=== PATIENT | female | born 1955 | race Caucasian/White ===

== ENCOUNTER 2016-10-28 09:27 | Emergency (ER) | payer MEDICARE, MEDICAID ==
[~2016-10-28] VITALS: Ht 165.1 cm; Wt 56.8 kg
[~2016-10-28 09:27] MED LIST: CELEXA40 MG PO; CYMBALTA 60MG60 MG PO; IMITREX100 MG PO; KEPPRA 500MG500 MG PO; KEPPRA750 MG PO; KLONOPIN 1MG1 MG PO; LEVAQUIN 750MG750 M1 PO; MEDROL 4MG DOSPA4 MG PO; NORCO 325 MG-51 TAB PO; PERCOCET 325 MG1 TA2 PO; PERCOCET 5/321 UDTAB PO; PRILOSEC 20MG20 MG PO; PRILOSEC2.5 MG/Pac PO; PROTONIX 40MG T40 MG PO; RESTORIL30 MG PO; SEIZURE MED; SYNTHROID0.088 MG/T PO; SYNTHROID0.1 MG/TAB PO; TOPAMAX50 MG PO; ZOFRAN ODT4 MG PO
[2016-10-28 09:37] VITALS: BP 151/102; TEMP 97.5
[2016-10-28 11:44] VITALS: PULSE 97
== END 2016-10-28 11:44 | disposition home or self-care (01) ==
LOC: COL.ER 09:27
DX: G43.909 Migraine, unspecified, not intractable, without status migrainosus (principal)
CPT/HCPCS: J0595; J1885; J2550

== ENCOUNTER → 2016-10-30 | Outpatient (CLI) | payer MEDICARE, MEDICAID ==
[~2016-10-30] MED LIST changes: +ABILIFY2 MG PO; +BACTRIM DS 8001 TAB PO; +CAPACET 325 MG-1 CAP PO; +CEPHALEXIN500 M1 PO; +DOXYCYCLINE 10100 MG PO; +LEVOXYL0.1 MG PO; +LOFIBRA54 MG PO; +NORCO 325 MG-7.1 TAB PO; +ROXICODONE 55 MG/TAB PO; +TENORMIN 2525 MG/TAB PO
[2016-10-30 15:42] LABS: BASO # 0.1 (0.0-0.2); BASO % 1.1 % (0.0-2.0); EOS # 0.2 (0.0-0.7); EOS % 2.1 % (0-4.0); GRAN # 5.6 (1.4-6.5); GRAN % 61.1 % (42.2-75.2); HEMATOCRIT 39.2 % (37.0-47.0); HEMOGLOBIN 12.8 g/dl (12.5-16.0); LYMPH # 2.6 (1.2-3.4); LYMPH % 28.5 % (20.0-51.0); MEAN CELL VOLUME 91 fl (80.0-100.0); MEAN CORPUSCULAR HEMOGLOBIN 30 pg (27.0-31.0); MEAN CORPUSCULAR HGB CONC 33 g/dl (33.0-37.0); MEAN PLATELET VOLUME 10.2 fl (7.4-10.4); MONO # 0.6 (0.1-0.6); MONO % 6.4 % (1.7-9.3); PLATELET COUNT 248 K/mm3 (130-400); RED BLOOD COUNT 4.32 M/mm3 (4.10-5.30); REDCELL DISTRIBUTION WIDTH-CV 16.8 % (11.5-14.5); WHITE BLOOD COUNT 9.1 K/mm3 (4.8-10.8)
[2016-10-30 15:50] LABS: ALBUMIN 4.4 gm/dL (3.5-5.0); BILIRUBIN,TOTAL 0.6 mg/dL (0.0-1.0); CALCIUM 9.3 mg/dL (8.4-10.2); CREATININE, serum 0.92 mg/dL (0.52-1.25); POTASSIUM 3.9 mmol/L (3.4-5.0); TOTAL PROTEIN 8.2 gm/dL (6.4-8.2)
== END ==
LOC: COL.LAB 14:29
PROVIDERS: Nurse Practitioner Family
DX: E03.8 Other specified hypothyroidism (principal); K21.9 Gastro-esophageal reflux disease without esophagitis; M81.8 Other osteoporosis without current pathological fracture

== ENCOUNTER 2016-11-10 04:43 | Emergency (ER) | payer MEDICARE, MEDICAID ==
[~2016-11-10] VITALS: Ht 165.1 cm; Wt 55.9 kg
[~2016-11-10 04:43] MED LIST changes: -ABILIFY2 MG PO; -BACTRIM DS 8001 TAB PO; -CAPACET 325 MG-1 CAP PO; -CEPHALEXIN500 M1 PO; -DOXYCYCLINE 10100 MG PO; -LEVOXYL0.1 MG PO; -LOFIBRA54 MG PO; -NORCO 325 MG-7.1 TAB PO; -ROXICODONE 55 MG/TAB PO; -TENORMIN 2525 MG/TAB PO
[2016-11-10 04:45] VITALS: TEMP 97.1
[2016-11-10 06:55] VITALS: BP 130/92; PULSE 74
== END 2016-11-10 06:56 | disposition home or self-care (01) ==
LOC: COL.ER 04:43
DX: G43.909 Migraine, unspecified, not intractable, without status migrainosus (principal)
CPT/HCPCS: J0595; J1885; J2765; J7030

== ENCOUNTER 2016-12-23 20:12 | Emergency (ER) | payer MEDICARE, MEDICAID ==
[~2016-12-23] VITALS: Ht 165.1 cm; Wt 65.9 kg
[2016-12-23 20:15] VITALS: TEMP 98.3
[2016-12-23] MEDS ORDERED: CEPHALEXIN500 M1 PO (21:21)
[2016-12-23] MEDS ORDERED: NORCO 325 MG-51 TAB PO (21:21)
[2016-12-23] MEDS ORDERED: ROXICODONE 55 MG/TAB PO (21:38)
[2016-12-23 22:28] VITALS: BP 139/98; PULSE 77
== END 2016-12-23 22:32 | disposition home or self-care (01) ==
LOC: COL.ER 20:12
DX: M79.631 Pain in right forearm (principal); M79.621 Pain in right upper arm; S80.02XA Contusion of left knee, initial encounter; S50.311A Abrasion of right elbow, initial encounter; G43.909 Migraine, unspecified, not intractable, without status migrainosus; F17.210 Nicotine dependence, cigarettes, uncomplicated; W01.198A Fall on same level from slipping, tripping and stumbling with subsequent striking against other object, initial encounter; Y92.009 Unspecified place in unspecified non-institutional (private) residence as the place of occurrence of the external cause

== ENCOUNTER 2017-01-21 18:15 | Emergency (ER) | payer OTHER, MEDICARE, MEDICAID ==
[~2017-01-21] VITALS: Ht 165.1 cm; Wt 56.8 kg
[~2017-01-21 18:15] MED LIST changes: +CEPHALEXIN500 M1 PO; +ROXICODONE 55 MG/TAB PO
[2017-01-21] MEDS ORDERED: ABILIFY2 MG PO (18:32)
[2017-01-21 19:17] LABS: BASO # 0.1 (0.0-0.2); BASO % 0.6 % (0.0-2.0); EOS # 0.3 (0.0-0.7); EOS % 2.5 % (0-4.0); GRAN # 9.4 (1.4-6.5); GRAN % 71.2 % (42.2-75.2); HEMATOCRIT 32.1 % (37.0-47.0); HEMOGLOBIN 10.4 g/dl (12.5-16.0); LYMPH # 2.1 (1.2-3.4); LYMPH % 16.1 % (20.0-51.0); MEAN CELL VOLUME 88 fl (80.0-100.0); MEAN CORPUSCULAR HEMOGLOBIN 28 pg (27.0-31.0); MEAN CORPUSCULAR HGB CONC 32 g/dl (33.0-37.0); MEAN PLATELET VOLUME 10.7 fl (7.4-10.4); MONO # 1.2 (0.1-0.6); MONO % 9.2 % (1.7-9.3); PLATELET COUNT 210 K/mm3 (130-400); RED BLOOD COUNT 3.65 M/mm3 (4.10-5.30); REDCELL DISTRIBUTION WIDTH-CV 18.9 % (11.5-14.5); WHITE BLOOD COUNT 13.2 K/mm3 (4.8-10.8)
[2017-01-21 19:24] LABS: ADJUSTED CALCIUM 9.1 mg/dL (8.4-10.2); ALANINE AMINOTRANSFERASE 16 U/L (9-52); ALBUMIN 3.9 gm/dL (3.5-5.0); ALKALINE PHOSPHATASE 92 U/L (50-136); ANION GAP 14 mmol/L (7-16); BILIRUBIN,TOTAL 0.5 mg/dL (0.0-1.0); BLOOD UREA NITROGEN 10 mg/dL (7-17); CARBON DIOXIDE 20 mmol/L (22-30); CHLORIDE 106 mmol/L (98-107); CREATININE, serum 0.78 mg/dL (0.52-1.25); GLUCOSE 113 mg/dL (74-106); POTASSIUM 3.6 mmol/L (3.4-5.0); SODIUM 140 mmol/L (137-145); TOTAL PROTEIN 7.2 gm/dL (6.4-8.2)
[2017-01-21 19:26] LABS: C-REACTIVE PROTEIN < 0.5 mg/dL (0.0-0.9)
[2017-01-21 19:38] VITALS: TEMP 98.6
[2017-01-21] MEDS ORDERED: PERCOCET 325 MG1 TA2 PO (20:33)
[2017-01-21] MEDS ORDERED: DOXYCYCLINE 10100 MG PO (20:33)
[2017-01-21 20:45] VITALS: BP 128/72; PULSE 88
== END 2017-01-21 20:54 | disposition home or self-care (01) ==
LOC: COL.ER 18:15
PROVIDERS: Emergency Medicine
DX: S20.212A Contusion of left front wall of thorax, initial encounter (principal); J40 Bronchitis, not specified as acute or chronic; G43.909 Migraine, unspecified, not intractable, without status migrainosus; R55 Syncope and collapse; E03.9 Hypothyroidism, unspecified; K21.9 Gastro-esophageal reflux disease without esophagitis; M19.90 Unspecified osteoarthritis, unspecified site; M81.0 Age-related osteoporosis without current pathological fracture; F17.210 Nicotine dependence, cigarettes, uncomplicated; Z90.710 Acquired absence of both cervix and uterus; Z90.49 Acquired absence of other specified parts of digestive tract; Z90.89 Acquired absence of other organs; Z96.641 Presence of right artificial hip joint; W19.XXXA Unspecified fall, initial encounter
CPT/HCPCS: A9284; J0595; J1885; J2765; J3010; J7030

== ENCOUNTER 2017-01-26 06:09 | Emergency (ER) | payer MEDICARE, MEDICAID ==
[~2017-01-26] VITALS: Ht 165.1 cm; Wt 56.8 kg
[~2017-01-26 06:09] MED LIST changes: +ABILIFY2 MG PO; +DOXYCYCLINE 10100 MG PO
[2017-01-26 06:12] VITALS: TEMP 97.4
[2017-01-26] MEDS ORDERED: PRILOSEC 20MG20 MG PO (06:32)
[2017-01-26] MEDS ORDERED: CELEXA40 MG PO (06:33)
[2017-01-26] MEDS ORDERED: LEVOXYL0.1 MG PO (06:35)
[2017-01-26 06:48] LABS: BASO # 0.1 (0.0-0.2); BASO % 0.9 % (0.0-2.0); EOS # 0.2 (0.0-0.7); EOS % 1.8 % (0-4.0); GRAN # 5.8 (1.4-6.5); GRAN % 67.9 % (42.2-75.2); LYMPH # 1.8 (1.2-3.4); LYMPH % 21.2 % (20.0-51.0); MEAN CELL VOLUME 88 fl (80.0-100.0); MEAN CORPUSCULAR HGB CONC 32 g/dl (33.0-37.0); MEAN PLATELET VOLUME 10.2 fl (7.4-10.4); MONO # 0.7 (0.1-0.6); MONO % 7.7 % (1.7-9.3); PLATELET COUNT 269 K/mm3 (130-400); RED BLOOD COUNT 3.95 M/mm3 (4.10-5.30); REDCELL DISTRIBUTION WIDTH-CV 17.9 % (11.5-14.5); WHITE BLOOD COUNT 8.5 K/mm3 (4.8-10.8)
[2017-01-26 06:57] LABS: ADJUSTED CALCIUM 9.4 mg/dL (8.4-10.2); ALANINE AMINOTRANSFERASE 16 U/L (9-52); ALKALINE PHOSPHATASE 103 U/L (50-136); ANION GAP 12 mmol/L (7-16); BILIRUBIN,TOTAL 0.6 mg/dL (0.0-1.0); BLOOD UREA NITROGEN 13 mg/dL (7-17); CALCIUM 9.4 mg/dL (8.4-10.2); CARBON DIOXIDE 24 mmol/L (22-30); CHLORIDE 105 mmol/L (98-107); CREATINE KINASE 47 U/L (30-135); CREATININE, serum 0.81 mg/dL (0.52-1.25); GLUCOSE 99 mg/dL (74-106); LIPASE 44 U/L (23-300); POTASSIUM 3.8 mmol/L (3.4-5.0); SODIUM 141 mmol/L (137-145); TOTAL PROTEIN 7.4 gm/dL (6.4-8.2)
[2017-01-26 07:16] LABS: TROPONIN-I < 0.012 ng/mL (0.000-0.034)
[2017-01-26 07:34] LABS: HEMATOCRIT 34.6 % (37.0-47.0); HEMOGLOBIN 11.1 g/dl (12.5-16.0); MEAN CORPUSCULAR HEMOGLOBIN 28 pg (27.0-31.0)
[2017-01-26] MEDS ORDERED: NORCO 325 MG-51 TAB PO (07:57)
[2017-01-26 08:20] VITALS: BP 135/82; PULSE 79
[2017-01-26 09:06] LABS: B-TYPE NATRIURETIC PEPTIDE 304 pg/mL (0-125)
== END 2017-01-26 08:51 | disposition home or self-care (01) ==
LOC: COL.ER 06:09
PROVIDERS: Emergency Medicine
DX: S22.22XA Fracture of body of sternum, initial encounter for closed fracture (principal); W01.198A Fall on same level from slipping, tripping and stumbling with subsequent striking against other object, initial encounter; Y92.009 Unspecified place in unspecified non-institutional (private) residence as the place of occurrence of the external cause; G43.909 Migraine, unspecified, not intractable, without status migrainosus; Z91.81 History of falling; M48.54XA Collapsed vertebra, not elsewhere classified, thoracic region, initial encounter for fracture; E03.9 Hypothyroidism, unspecified
CPT/HCPCS: J1885; J2270; J7030; Q9967

== ENCOUNTER → 2017-02-12 | Outpatient (REF) ==
[~2017-02-12] MED LIST changes: +BACTRIM DS 8001 TAB PO; +CAPACET 325 MG-1 CAP PO; +LEVOXYL0.1 MG PO; +LOFIBRA54 MG PO; +NORCO 325 MG-7.1 TAB PO; +TENORMIN 2525 MG/TAB PO
[2017-02-12 18:53] LABS: THYROID STIMULATING HORMONE < 0.015 uIU/mL (0.465-4.680)
== END ==
LOC: ZLAB.WCH 18:12
PROVIDERS: Family Medicine
DX: Z01.89 Encounter for other specified special examinations (principal)

== ENCOUNTER 2017-02-25 03:27 | Emergency (ER) | payer OTHER, MEDICARE, MEDICAID ==
[~2017-02-25] VITALS: Ht 165.1 cm; Wt 54.5 kg
[~2017-02-25 03:27] MED LIST changes: -BACTRIM DS 8001 TAB PO; -CAPACET 325 MG-1 CAP PO; -LOFIBRA54 MG PO; -NORCO 325 MG-7.1 TAB PO; -TENORMIN 2525 MG/TAB PO
[2017-02-25 03:29] VITALS: TEMP 97.4
[2017-02-25 04:11] LABS: ALBUMIN 3.7 gm/dL (3.5-5.0); BILIRUBIN,TOTAL 0.6 mg/dL (0.0-1.0); CALCIUM 8.8 mg/dL (8.4-10.2); CREATININE, serum 0.68 mg/dL (0.52-1.25); POTASSIUM 4.1 mmol/L (3.4-5.0); TOTAL PROTEIN 7.3 gm/dL (6.4-8.2)
[2017-02-25 04:32] LABS: BASO % 0.5 % (0.0-2.0); EOS # 0.2 (0.0-0.7); EOS % 2.3 % (0-4.0); GRAN # 5.1 (1.4-6.5); GRAN % 59.7 % (42.2-75.2); LYMPH # 2.3 (1.2-3.4); LYMPH % 27.2 % (20.0-51.0); MEAN CELL VOLUME 87 fl (80.0-100.0); MEAN CORPUSCULAR HGB CONC 32 g/dl (33.0-37.0); MONO # 0.9 (0.1-0.6); PLATELET COUNT 191 K/mm3 (130-400); RED BLOOD COUNT 3.44 M/mm3 (4.10-5.30); REDCELL DISTRIBUTION WIDTH-CV 17.4 % (11.5-14.5); WHITE BLOOD COUNT 8.6 K/mm3 (4.8-10.8)
[2017-02-25 04:34] LABS: HEMATOCRIT 29.8 % (37.0-47.0); HEMOGLOBIN 9.4 g/dl (12.5-16.0); MEAN CORPUSCULAR HEMOGLOBIN 27 pg (27.0-31.0)
[2017-02-25 05:09] LABS: PH 5 (5-8); SQUAMOUS EPITHELIAL 0-2 /hpf; URINE APPEARANCE Clear; URINE BACTERIA None Seen /hpf; URINE BILIRUBIN Negative (NEGATIVE); URINE BLOOD Negative (NEGATIVE); URINE COLOR Yellow; URINE GLUCOSE Negative (NEGATIVE); URINE KETONE Negative (NEGATIVE); URINE RBC 0-2 /hpf; URINE UROBILINOGEN Negative (NEGATIVE); URINE WBC 0-2 /hpf
[2017-02-25] MEDS ORDERED: RESTORIL30 MG PO (05:17)
[2017-02-25] MEDS ORDERED: SYNTHROID0.088 MG/T PO (05:17)
[2017-02-25] MEDS ORDERED: CAPACET 325 MG-1 CAP PO (05:18)
[2017-02-25] MEDS ORDERED: KLONOPIN 1MG1 MG PO (05:20)
[2017-02-25] MEDS ORDERED: CYMBALTA 60MG60 MG PO (05:20)
[2017-02-25 07:23] VITALS: BP 107/81; PULSE 83
== END 2017-02-25 07:24 | disposition home or self-care (01) ==
LOC: COL.ER 03:27
PROVIDERS: Emergency Medicine
DX: S62.325A Displaced fracture of shaft of fourth metacarpal bone, left hand, initial encounter for closed fracture (principal); S62.363A Nondisplaced fracture of neck of third metacarpal bone, left hand, initial encounter for closed fracture; S62.391A Other fracture of second metacarpal bone, left hand, initial encounter for closed fracture; W19.XXXA Unspecified fall, initial encounter; Z91.81 History of falling; Y92.007 Garden or yard of unspecified non-institutional (private) residence as the place of occurrence of the external cause; R51 Headache; S22.20XD Unspecified fracture of sternum, subsequent encounter for fracture with routine healing; M48.54XD Collapsed vertebra, not elsewhere classified, thoracic region, subsequent encounter for fracture with routine healing; M40.209 Unspecified kyphosis, site unspecified; R40.0 Somnolence
CPT/HCPCS: J1170; J1885; J7030

== ENCOUNTER → 2017-03-11 | Outpatient (CLI) | payer MEDICARE, MEDICAID ==
[~2017-03-11] MED LIST changes: +BACTRIM DS 8001 TAB PO; +CAPACET 325 MG-1 CAP PO; +LOFIBRA54 MG PO; +NORCO 325 MG-7.1 TAB PO; +TENORMIN 2525 MG/TAB PO
[2017-03-11 12:13] LABS: ADJUSTED CALCIUM 9.7 mg/dL (8.4-10.2); ALANINE AMINOTRANSFERASE 16 U/L (9-52); ALBUMIN 3.8 gm/dL (3.5-5.0); ALKALINE PHOSPHATASE 100 U/L (50-136); ANION GAP 11 mmol/L (7-16); BILIRUBIN,TOTAL 0.4 mg/dL (0.0-1.0); BLOOD UREA NITROGEN 6 mg/dL (7-17); CALCIUM 9.5 mg/dL (8.4-10.2); CARBON DIOXIDE 22 mmol/L (22-30); CHLORIDE 107 mmol/L (98-107); CHOLESTEROL 236 mg/dL (120-200); CREATININE, serum 0.66 mg/dL (0.52-1.25); GLUCOSE 95 mg/dL (74-106); POTASSIUM 4.2 mmol/L (3.4-5.0); SODIUM 140 mmol/L (137-145); TOTAL PROTEIN 7.4 gm/dL (6.4-8.2); TRIGLYCERIDE 488 mg/dL
[2017-03-11 12:24] LABS: HDL CHOLESTEROL 54 mg/dL
== END ==
LOC: COL.LAB 10:31
PROVIDERS: Family Medicine
DX: Z13.6 Encounter for screening for cardiovascular disorders (principal); Z13.1 Encounter for screening for diabetes mellitus

== ENCOUNTER 2017-03-24 05:27 | Emergency (ER) | payer MEDICARE, MEDICAID ==
[~2017-03-24] VITALS: Ht 157.5 cm; Wt 56.8 kg
[~2017-03-24 05:27] MED LIST changes: -BACTRIM DS 8001 TAB PO; -LOFIBRA54 MG PO; -NORCO 325 MG-7.1 TAB PO; -TENORMIN 2525 MG/TAB PO
[2017-03-24 05:30] VITALS: TEMP 97.2
[2017-03-24] MEDS ORDERED: LOFIBRA54 MG PO (05:45)
[2017-03-24 06:25] LABS: BASO # 0.1 (0.0-0.2); BASO % 0.7 % (0.0-2.0); EOS # 0.2 (0.0-0.7); EOS % 2.1 % (0-4.0); GRAN # 7.6 (1.4-6.5); GRAN % 68.9 % (42.2-75.2); LYMPH # 2.1 (1.2-3.4); LYMPH % 18.7 % (20.0-51.0); MEAN CELL VOLUME 86 fl (80.0-100.0); MEAN CORPUSCULAR HGB CONC 32 g/dl (33.0-37.0); MEAN PLATELET VOLUME 10.1 fl (7.4-10.4); MONO % 9.1 % (1.7-9.3); PLATELET COUNT 262 K/mm3 (130-400); RED BLOOD COUNT 3.81 M/mm3 (4.10-5.30); REDCELL DISTRIBUTION WIDTH-CV 18.2 % (11.5-14.5)
[2017-03-24 06:26] LABS: HEMATOCRIT 32.8 % (37.0-47.0); HEMOGLOBIN 10.5 g/dl (12.5-16.0); MEAN CORPUSCULAR HEMOGLOBIN 28 pg (27.0-31.0)
[2017-03-24 06:34] LABS: ADJUSTED CALCIUM 9.2 mg/dL (8.4-10.2); ALBUMIN 4.1 gm/dL (3.5-5.0); BILIRUBIN,TOTAL 0.5 mg/dL (0.0-1.0); CALCIUM 9.3 mg/dL (8.4-10.2); CREATININE, serum 0.87 mg/dL (0.52-1.25); TOTAL PROTEIN 7.5 gm/dL (6.4-8.2)
[2017-03-24] MEDS ORDERED: NORCO 325 MG-7.1 TAB PO (08:01)
[2017-03-24] MEDS ORDERED: NORCO 325 MG-51 TAB PO (08:14)
[2017-03-24 10:15] VITALS: BP 94/67; PULSE 79
== END 2017-03-24 10:17 | disposition home or self-care (01) ==
LOC: COL.ER 05:27
PROVIDERS: Emergency Medicine
DX: S22.049A Unspecified fracture of fourth thoracic vertebra, initial encounter for closed fracture (principal); S22.059A Unspecified fracture of T5-T6 vertebra, initial encounter for closed fracture; S22.069A Unspecified fracture of T7-T8 vertebra, initial encounter for closed fracture; E03.9 Hypothyroidism, unspecified; K21.9 Gastro-esophageal reflux disease without esophagitis; Z98.890 Other specified postprocedural states; W01.0XXA Fall on same level from slipping, tripping and stumbling without subsequent striking against object, initial encounter; Y92.009 Unspecified place in unspecified non-institutional (private) residence as the place of occurrence of the external cause
CPT/HCPCS: J2405; J3010; J7030

== ENCOUNTER 2017-03-26 17:16 | Inpatient (IN) | payer MEDICARE, MEDICAID ==
[~2017-03-26] VITALS: Ht 165.1 cm; Wt 55.9 kg
[~2017-03-26 17:16] MED LIST changes: +LOFIBRA54 MG PO; +NORCO 325 MG-7.1 TAB PO
[2017-03-26 17:56] LABS: BASO # 0.1 (0.0-0.2); BASO % 0.5 % (0.0-2.0); EOS # 0.1 (0.0-0.7); EOS % 0.6 % (0-4.0); GRAN # 7.6 (1.4-6.5); GRAN % 75.2 % (42.2-75.2); LYMPH # 1.2 (1.2-3.4); LYMPH % 12.1 % (20.0-51.0); MEAN CELL VOLUME 84 fl (80.0-100.0); MEAN CORPUSCULAR HGB CONC 33 g/dl (33.0-37.0); MONO # 1.1 (0.1-0.6); MONO % 11.3 % (1.7-9.3); PLATELET COUNT 230 K/mm3 (130-400); RED BLOOD COUNT 3.83 M/mm3 (4.10-5.30); REDCELL DISTRIBUTION WIDTH-CV 18.3 % (11.5-14.5); WHITE BLOOD COUNT 10.1 K/mm3 (4.8-10.8)
[2017-03-26 17:57] LABS: HEMATOCRIT 32.3 % (37.0-47.0); HEMOGLOBIN 10.6 g/dl (12.5-16.0); MEAN CORPUSCULAR HEMOGLOBIN 28 pg (27.0-31.0)
[2017-03-26 18:16] LABS: ANION GAP 13 mmol/L (7-16); BLOOD UREA NITROGEN 3 mg/dL (7-17); CALCIUM 9.3 mg/dL (8.4-10.2); CARBON DIOXIDE 19 mmol/L (22-30); CHLORIDE 107 mmol/L (98-107); CREATININE, serum 0.72 mg/dL (0.52-1.25); GLUCOSE 124 mg/dL (74-106); POTASSIUM 3.6 mmol/L (3.4-5.0); SODIUM 138 mmol/L (137-145)
[2017-03-26 18:19] VITALS: BP 137/80; PULSE 94
[2017-03-26 18:23] LABS: ACETAMINOPHEN < 10 ug/mL (10-30); SALICYLATE < 1.0 mg/dL
[2017-03-26 18:34] LABS: TROPONIN-I < 0.012 ng/mL (0.000-0.034)
[2017-03-26 19:18] LABS: PH 7 (5-8); SQUAMOUS EPITHELIAL 0-2 /hpf; URINE APPEARANCE Clear; URINE BACTERIA None Seen /hpf; URINE BILIRUBIN Negative (NEGATIVE); URINE BLOOD 1+ (NEGATIVE); URINE COLOR Straw; URINE GLUCOSE Negative (NEGATIVE); URINE KETONE Negative (NEGATIVE); URINE RBC 0-2 /hpf; URINE UROBILINOGEN Negative (NEGATIVE); URINE WBC 0-2 /hpf
[2017-03-26 19:25] LABS: AMPHETAMINE URINE NEGATIVE; BARBITURATES URINE POSITIVE; BENZODIAZEPINES URINE POSITIVE; BUPRENORPHINE URINE NEGATIVE; METHADONE URINE NEGATIVE; OPIATES URINE NEGATIVE; OXYCODONE URINE NEGATIVE; PHENCYCLIDINE URINE NEGATIVE; PROPOXYPHENE URINE NEGATIVE; THC CANNABINOIDS URINE NEGATIVE
[2017-03-26 21:52] VITALS: BP 144/79; PULSE 94; TEMP 98.1
[2017-03-27 04:15] VITALS: BP 112/60; PULSE 96; TEMP 101.4
[2017-03-27 04:59] LABS: BASO # 0.1 (0.0-0.2); BASO % 0.6 % (0.0-2.0); EOS # 0.1 (0.0-0.7); EOS % 1.4 % (0-4.0); GRAN # 5.2 (1.4-6.5); GRAN % 62.6 % (42.2-75.2); LYMPH # 1.9 (1.2-3.4); LYMPH % 22.3 % (20.0-51.0); MEAN CELL VOLUME 85 fl (80.0-100.0); MEAN CORPUSCULAR HGB CONC 32 g/dl (33.0-37.0); MONO # 1.1 (0.1-0.6); PLATELET COUNT 235 K/mm3 (130-400); REDCELL DISTRIBUTION WIDTH-CV 18.6 % (11.5-14.5); WHITE BLOOD COUNT 8.3 K/mm3 (4.8-10.8)
[2017-03-27 05:00] LABS: HEMATOCRIT 29.9 % (37.0-47.0); HEMOGLOBIN 9.6 g/dl (12.5-16.0); MEAN CORPUSCULAR HEMOGLOBIN 27 pg (27.0-31.0)
[2017-03-27 05:11] LABS: CALCIUM 8.3 mg/dL (8.4-10.2); CREATININE, serum 0.76 mg/dL (0.52-1.25); POTASSIUM 3.8 mmol/L (3.4-5.0)
[2017-03-27 07:35] VITALS: BP 125/71; PULSE 87; TEMP 98.4
[2017-03-27 11:37] VITALS: BP 112/57; PULSE 94; TEMP 98
[2017-03-27 15:26] VITALS: BP 129/71; PULSE 84; TEMP 97.4
[2017-03-27 20:08] VITALS: BP 133/71; PULSE 81; TEMP 97.9
[2017-03-28 00:17] VITALS: BP 153/89; PULSE 75; TEMP 97.5
[2017-03-28 04:13] VITALS: BP 150/77; PULSE 79; TEMP 98.2
[2017-03-28 07:23] LABS: BASO % 0.3 % (0.0-2.0); EOS % 0.2 % (0-4.0); GRAN # 9.6 (1.4-6.5); GRAN % 85.6 % (42.2-75.2); LYMPH # 0.7 (1.2-3.4); LYMPH % 6.3 % (20.0-51.0); MEAN CELL VOLUME 87 fl (80.0-100.0); MEAN CORPUSCULAR HGB CONC 31 g/dl (33.0-37.0); MEAN PLATELET VOLUME 9.9 fl (7.4-10.4); MONO # 0.8 (0.1-0.6); MONO % 7.2 % (1.7-9.3); PLATELET COUNT 247 K/mm3 (130-400); RED BLOOD COUNT 3.49 M/mm3 (4.10-5.30); REDCELL DISTRIBUTION WIDTH-CV 18.5 % (11.5-14.5); WHITE BLOOD COUNT 11.2 K/mm3 (4.8-10.8)
[2017-03-28 07:29] LABS: HEMATOCRIT 30.4 % (37.0-47.0); HEMOGLOBIN 9.5 g/dl (12.5-16.0); MEAN CORPUSCULAR HEMOGLOBIN 27 pg (27.0-31.0)
[2017-03-28 07:40] LABS: CALCIUM 8.8 mg/dL (8.4-10.2); CREATININE, serum 0.54 mg/dL (0.52-1.25); POTASSIUM 4.6 mmol/L (3.4-5.0)
[2017-03-28 07:44] VITALS: BP 153/86; PULSE 92; TEMP 98.2
[2017-03-28 11:35] VITALS: BP 134/76; PULSE 71; TEMP 99
[2017-03-28 15:28] VITALS: BP 124/57; PULSE 69; TEMP 99
[2017-03-28 19:50] VITALS: BP 140/72; PULSE 76; TEMP 99.2
[2017-03-29 00:52] VITALS: BP 114/56; PULSE 68; TEMP 98.8
[2017-03-29 04:47] VITALS: BP 115/58; PULSE 73; TEMP 99.3
[2017-03-29 07:38] VITALS: BP 122/60; PULSE 67; TEMP 99.1
[2017-03-29 11:27] VITALS: BP 131/68; PULSE 69; TEMP 98.9
[2017-03-29] MEDS ORDERED: TENORMIN 2525 MG/TAB PO (14:43)
== END 2017-03-29 15:39 | disposition home health service (06) | DRG 149 ==
LOC: COL.ER 17:16 → MEDICAL 20:19
PROVIDERS: Emergency Medicine; Nurse Practitioner Family
DX: R42 Dizziness and giddiness (principal); R53.81 Other malaise; R53.1 Weakness; T42.3X5A Adverse effect of barbiturates, initial encounter; F43.10 Post-traumatic stress disorder, unspecified; F41.8 Other specified anxiety disorders; F17.210 Nicotine dependence, cigarettes, uncomplicated; G89.29 Other chronic pain; Z91.81 History of falling; G43.909 Migraine, unspecified, not intractable, without status migrainosus
CPT/HCPCS: 99223-AI; 99233-AI; 99238; G0378; G8978-GP; G8979-GP; G8987-GP; G8988-GP; J1100; J2270; J3010; J3480; J7030; J8540

== ENCOUNTER 2017-03-31 05:53 | Observation (INO) | payer OTHER, MEDICARE, MEDICAID ==
[~2017-03-31] VITALS: Ht 165.1 cm; Wt 128.5 kg
[~2017-03-31 05:53] MED LIST changes: +TENORMIN 2525 MG/TAB PO
[2017-03-31 06:23] LABS: BASO # 0.1 (0.0-0.2); BASO % 0.5 % (0.0-2.0); EOS # 0.2 (0.0-0.7); EOS % 1.5 % (0-4.0); GRAN # 8.2 (1.4-6.5); GRAN % 69.9 % (42.2-75.2); HEMATOCRIT 31.5 % (37.0-47.0); HEMOGLOBIN 10.5 g/dl (12.5-16.0); LYMPH # 2.3 (1.2-3.4); LYMPH % 20.1 % (20.0-51.0); MEAN CELL VOLUME 83 fl (80.0-100.0); MEAN CORPUSCULAR HEMOGLOBIN 28 pg (27.0-31.0); MEAN CORPUSCULAR HGB CONC 33 g/dl (33.0-37.0); MEAN PLATELET VOLUME 10.1 fl (7.4-10.4); MONO # 0.9 (0.1-0.6); MONO % 7.6 % (1.7-9.3); PLATELET COUNT 289 K/mm3 (130-400); RED BLOOD COUNT 3.78 M/mm3 (4.10-5.30); REDCELL DISTRIBUTION WIDTH-CV 18.5 % (11.5-14.5); WHITE BLOOD COUNT 11.7 K/mm3 (4.8-10.8)
[2017-03-31 06:34] LABS: ADJUSTED CALCIUM 9.1 mg/dL (8.4-10.2); ALANINE AMINOTRANSFERASE 26 U/L (9-52); ALBUMIN 3.6 gm/dL (3.5-5.0); ALKALINE PHOSPHATASE 89 U/L (50-136); ANION GAP 13 mmol/L (7-16); BILIRUBIN,TOTAL 0.5 mg/dL (0.0-1.0); BLOOD UREA NITROGEN 10 mg/dL (7-17); CALCIUM 8.8 mg/dL (8.4-10.2); CARBON DIOXIDE 19 mmol/L (22-30); CHLORIDE 106 mmol/L (98-107); CREATININE, serum 0.79 mg/dL (0.52-1.25); GLUCOSE 112 mg/dL (74-106); LIPASE 30 U/L (23-300); POTASSIUM 3.1 mmol/L (3.4-5.0); SODIUM 138 mmol/L (137-145); TOTAL PROTEIN 7.1 gm/dL (6.4-8.2)
[2017-03-31 06:45] LABS: B-TYPE NATRIURETIC PEPTIDE 281 pg/mL (0-125)
[2017-03-31 06:51] LABS: TROPONIN-I < 0.012 ng/mL (0.000-0.034)
[2017-03-31 15:01] VITALS: BP 137/104; PULSE 66; TEMP 98.4
[2017-03-31 17:05] VITALS: BP 125/68; PULSE 77; TEMP 97.9
[2017-03-31 19:55] VITALS: BP 124/71; PULSE 77; TEMP 97.3
[2017-03-31 23:28] VITALS: BP 135/69; PULSE 82; TEMP 97.2
[2017-04-01] VITALS (7 sets, daily range): BP systolic 93–138; BP diastolic 47–80; PULSE 73–90; TEMP 96.8–98.2
[2017-04-01 05:51] LABS: BASO # 0.1 (0.0-0.2); BASO % 1.1 % (0.0-2.0); EOS # 0.2 (0.0-0.7); EOS % 2.5 % (0-4.0); GRAN # 4.6 (1.4-6.5); GRAN % 58.2 % (42.2-75.2); LYMPH # 2.4 (1.2-3.4); LYMPH % 30.3 % (20.0-51.0); MEAN CELL VOLUME 86 fl (80.0-100.0); MEAN CORPUSCULAR HGB CONC 31 g/dl (33.0-37.0); MEAN PLATELET VOLUME 10.6 fl (7.4-10.4); MONO # 0.6 (0.1-0.6); MONO % 7.3 % (1.7-9.3); PLATELET COUNT 280 K/mm3 (130-400); REDCELL DISTRIBUTION WIDTH-CV 18.7 % (11.5-14.5); WHITE BLOOD COUNT 7.9 K/mm3 (4.8-10.8)
[2017-04-01 05:53] LABS: HEMATOCRIT 28.5 % (37.0-47.0); HEMOGLOBIN 8.9 g/dl (12.5-16.0); MEAN CORPUSCULAR HEMOGLOBIN 27 pg (27.0-31.0)
[2017-04-01 06:01] LABS: ANION GAP 5 mmol/L (7-16); BLOOD UREA NITROGEN 9 mg/dL (7-17); CALCIUM 8.5 mg/dL (8.4-10.2); CARBON DIOXIDE 22 mmol/L (22-30); CHLORIDE 107 mmol/L (98-107); CREATININE, serum 0.77 mg/dL (0.52-1.25); GLUCOSE 93 mg/dL (74-106); MAGNESIUM 2.1 mg/dL (1.6-2.3); SODIUM 133 mmol/L (137-145)
[2017-04-01 06:13] LABS: TROPONIN-I < 0.012 ng/mL (0.000-0.034)
== END 2017-04-01 19:25 | disposition home or self-care (01) ==
LOC: COL.ER 05:53 → MEDICAL 11:50
PROVIDERS: Emergency Medicine; Nurse Practitioner Family
DX: R07.89 Other chest pain (principal); D72.829 Elevated white blood cell count, unspecified; E87.6 Hypokalemia; E78.5 Hyperlipidemia, unspecified; K21.9 Gastro-esophageal reflux disease without esophagitis; E03.9 Hypothyroidism, unspecified; G43.909 Migraine, unspecified, not intractable, without status migrainosus; R53.81 Other malaise; F43.10 Post-traumatic stress disorder, unspecified; F17.210 Nicotine dependence, cigarettes, uncomplicated; Z82.3 Family history of stroke; F41.9 Anxiety disorder, unspecified; F32.9 Major depressive disorder, single episode, unspecified; E78.1 Pure hyperglyceridemia; Z91.81 History of falling; Z96.641 Presence of right artificial hip joint; S22.20XG Unspecified fracture of sternum, subsequent encounter for fracture with delayed healing; W19.XXXD Unspecified fall, subsequent encounter; K44.9 Diaphragmatic hernia without obstruction or gangrene; Z87.311 Personal history of (healed) other pathological fracture
CPT/HCPCS: 99222-AI; 99239; A9502; C1751; G0378; G8978-GP; G8979-GP; G8987-GO; G8988-GO; J1644; J1650; J2270; J2405; J2785; J7030; Q9967

== ENCOUNTER 2017-04-11 15:53 | Emergency (ER) | payer MEDICARE, MEDICAID ==
[~2017-04-11] VITALS: Ht 165.1 cm; Wt 54.5 kg
[2017-04-11 15:57] VITALS: BP 110/62; TEMP 98.1
[2017-04-11] MEDS ORDERED: CEPHALEXIN500 M1 PO (17:20)
[2017-04-11 17:25] VITALS: PULSE 71
== END 2017-04-11 17:30 | disposition home or self-care (01) ==
LOC: COL.ER 15:53
DX: G43.909 Migraine, unspecified, not intractable, without status migrainosus (principal); F32.9 Major depressive disorder, single episode, unspecified; F41.9 Anxiety disorder, unspecified; F43.10 Post-traumatic stress disorder, unspecified; M81.0 Age-related osteoporosis without current pathological fracture; F17.210 Nicotine dependence, cigarettes, uncomplicated
CPT/HCPCS: J0595; J3030

== ENCOUNTER 2017-04-12 15:37 | Emergency (ER) | payer MEDICARE, MEDICAID ==
[~2017-04-12] VITALS: Ht 165.1 cm; Wt 52.3 kg
[2017-04-12 15:43] VITALS: BP 110/66; TEMP 98.2
[2017-04-12 18:28] VITALS: PULSE 88
== END 2017-04-12 18:29 | disposition home or self-care (01) ==
LOC: COL.ER 15:37
DX: G43.909 Migraine, unspecified, not intractable, without status migrainosus (principal); F32.9 Major depressive disorder, single episode, unspecified; F41.9 Anxiety disorder, unspecified; F43.10 Post-traumatic stress disorder, unspecified; E03.9 Hypothyroidism, unspecified; F17.210 Nicotine dependence, cigarettes, uncomplicated
CPT/HCPCS: J0595; J3030

== ENCOUNTER 2017-04-23 14:56 | Emergency (ER) | payer MEDICARE, MEDICAID ==
[~2017-04-23] VITALS: Ht 165.1 cm; Wt 57.3 kg
[2017-04-23 15:05] VITALS: BP 126/63; TEMP 98.1
[2017-04-23] MEDS ORDERED: BACTRIM DS 8001 TAB PO (15:23)
[2017-04-23 18:46] VITALS: PULSE 84
== END 2017-04-23 18:30 | disposition home or self-care (01) ==
LOC: COL.ER 14:56
DX: M25.512 Pain in left shoulder (principal); G43.909 Migraine, unspecified, not intractable, without status migrainosus; F32.9 Major depressive disorder, single episode, unspecified; F41.9 Anxiety disorder, unspecified; K21.9 Gastro-esophageal reflux disease without esophagitis; Z90.710 Acquired absence of both cervix and uterus; W18.39XA Other fall on same level, initial encounter; Y92.009 Unspecified place in unspecified non-institutional (private) residence as the place of occurrence of the external cause
CPT/HCPCS: J2270; J2405

== ENCOUNTER → 2017-06-30 | Outpatient (CLI) | payer MEDICARE, MEDICAID ==
[~2017-06-30] MED LIST changes: +BACTRIM DS 8001 TAB PO
== END ==
LOC: BHSO 13:42
DX: F33.1 Major depressive disorder, recurrent, moderate (principal)

== ENCOUNTER 2017-07-05 17:12 | Emergency (ER) | payer MEDICARE, MEDICAID ==
[~2017-07-05] VITALS: Wt 59.1 kg
[2017-07-05 17:16] VITALS: TEMP 98.4
[2017-07-05 17:34] LABS: HEMATOCRIT 37.6 % (37.0-47.0); MEAN CELL VOLUME 89 fl (80.0-100.0); MEAN CORPUSCULAR HEMOGLOBIN 27 pg (27.0-31.0); MEAN CORPUSCULAR HGB CONC 30 g/dl (33.0-37.0); MEAN PLATELET VOLUME 10.8 fl (7.4-10.4); PLATELET COUNT 159 K/mm3 (130-400); RED BLOOD COUNT 4.21 M/mm3 (4.10-5.30); WHITE BLOOD COUNT 14.2 K/mm3 (4.8-10.8)
[2017-07-05 17:36] LABS: HEMOGLOBIN 11.2 g/dl (12.5-16.0)
[2017-07-05 17:37] LABS: ARTERIAL BLD GAS O2 SATURATION 98.5 % (92-100); ARTERIAL BLD GAS TCO2 CT 23.4; ARTERIAL BLOOD GAS BASE EXCESS -5.6 (-2-2); ARTERIAL BLOOD GAS HCO3 21.9 meq/L (22-26); ARTERIAL BLOOD GAS PHT 7.24 C (7.35-7.45); ARTERIAL BLOOD GAS pH 7.24 (7.35-7.45); OXYHEMOGLOBIN 97.7 %
[2017-07-05 17:37] LABS: ADD PATHOLOGY DIFF REVIEW NO
[2017-07-05 17:38] LABS: ARTERIAL BLOOD GAS PO2 151.8 mmHg (80-100); ARTERIAL BLOOD GAS PO2T 151.8 (80-100)
[2017-07-05 17:39] LABS: INR 1.2 (0.8-3.0); PROTHROMBIN TIME 13.8 SECONDS (9.7-12.8)
[2017-07-05 17:39] LABS: ALLEN TEST YES; ALLENS TEST RESULT PASS; ATS? YES
[2017-07-05 17:41] LABS: LIPASE 30 U/L (23-300)
[2017-07-05 17:42] LABS: ACETAMINOPHEN < 10 ug/mL (10-30); ALCOHOL(ethanol),MEDICAL < 10 mg/dL; SALICYLATE < 1.0 mg/dL
[2017-07-05 17:44] LABS: ADJUSTED CALCIUM 8.9 mg/dL (8.4-10.2); ALANINE AMINOTRANSFERASE 21 U/L (9-52); ALKALINE PHOSPHATASE 117 U/L (50-136); ANION GAP 9 mmol/L (7-16); BILIRUBIN,TOTAL 0.6 mg/dL (0.0-1.0); BLOOD UREA NITROGEN 18 mg/dL (7-17); CALCIUM 8.9 mg/dL (8.4-10.2); CARBON DIOXIDE 24 mmol/L (22-30); CHLORIDE 106 mmol/L (98-107); CREATININE, serum 0.89 mg/dL (0.52-1.25); GLUCOSE 176 mg/dL (74-106); POTASSIUM 4.1 mmol/L (3.4-5.0); SODIUM 139 mmol/L (137-145); TOTAL PROTEIN 7.7 gm/dL (6.4-8.2)
[2017-07-05 17:53] LABS: B-TYPE NATRIURETIC PEPTIDE 3540 pg/mL (0-125); TROPONIN-I 0.027 ng/mL (0.000-0.034)
[2017-07-05 18:00] LABS: BAND 14 % (0-10); LYMPHOCYTE 5 % (20.0-51.0); NEUTROPHILS 78 % (42.0-75.2); TOTAL CELLS COUNTED 100
[2017-07-05 18:02] LABS: PLATELET ESTIMATE NORMAL (NORMAL)
[2017-07-05 18:06] LABS: AMPHETAMINE URINE NEGATIVE; BARBITURATES URINE NEGATIVE; BENZODIAZEPINES URINE POSITIVE; BUPRENORPHINE URINE NEGATIVE; METHADONE URINE NEGATIVE; OPIATES URINE POSITIVE; OXYCODONE URINE NEGATIVE; PHENCYCLIDINE URINE NEGATIVE; PROPOXYPHENE URINE NEGATIVE; THC CANNABINOIDS URINE NEGATIVE; TRICYCLIC ANTIDEPRESS URINE NEGATIVE
[2017-07-05 18:25] LABS: COLLECTION METHOD CATHETER
[2017-07-05 18:48] LABS: HYALINE CAST >12 /lpf; MUCOUS Present /lpf; PH 5 (5-8); SQUAMOUS EPITHELIAL None Seen /hpf; URINE APPEARANCE Hazy; URINE BACTERIA None Seen /hpf; URINE BILIRUBIN Negative (NEGATIVE); URINE BLOOD 1+ (NEGATIVE); URINE COLOR Yellow; URINE GLUCOSE Negative (NEGATIVE); URINE KETONE Negative (NEGATIVE); URINE LEUKOCYTE ESTERASE Negative (NEGATIVE); URINE PROTEIN(semi-quant) 1+ (NEGATIVE); URINE UROBILINOGEN Negative (NEGATIVE)
[2017-07-05 19:13] VITALS: BP 152/65; PULSE 99
[2017-07-05 21:21] LABS: ARTERIAL BLOOD GAS HCO3 21.7 meq/L (22-26); ARTERIAL BLOOD GAS PO2 74.5 mmHg (80-100); ARTERIAL BLOOD GAS pH 7.31 (7.35-7.45)
[2017-07-05 21:22] LABS: ALLEN TEST YES; ALLENS TEST RESULT PASS; ARTERIAL BLD GAS O2 SATURATION 94.3 % (92-100); ARTERIAL BLD GAS TCO2 CT 23.1; ARTERIAL BLOOD GAS BASE EXCESS -4.4 (-2-2); ATS? YES
== END 2017-07-05 20:14 | disposition short-term general hospital (02) ==
LOC: COL.ER 17:12
PROVIDERS: Emergency Medicine
DX: J96.90 Respiratory failure, unspecified, unspecified whether with hypoxia or hypercapnia (principal); F41.9 Anxiety disorder, unspecified; E78.5 Hyperlipidemia, unspecified; G43.909 Migraine, unspecified, not intractable, without status migrainosus; J44.9 Chronic obstructive pulmonary disease, unspecified; Z90.710 Acquired absence of both cervix and uterus; Z90.49 Acquired absence of other specified parts of digestive tract; Z98.890 Other specified postprocedural states; Z96.641 Presence of right artificial hip joint
CPT/HCPCS: C9113; J0692; J2250; J2704; J2930; J3370; J7030; J7040; J7050

== ENCOUNTER → 2017-07-30 | Outpatient (REF) ==
[~2017-07-30] MED LIST changes: +LAMICTAL 25MG T25 MG PO; +LEVAQUIN 5500 MG/TA1; +LOFIBRA67 MG PO; +TOPROL XL 25MG25 MG PO; +TRIAM OI 0.1 454; +ZOFRAN 4MG T4 MG/TAB PO
[2017-07-30 09:17] LABS: THYROID STIMULATING HORMONE 0.038 uIU/mL (0.465-4.680)
== END ==
LOC: ZLAB.WCH 08:36
PROVIDERS: Family Medicine
DX: Z01.89 Encounter for other specified special examinations (principal)

== ENCOUNTER 2017-08-12 20:43 | Emergency (ER) | payer MEDICARE, MEDICAID ==
[~2017-08-12] VITALS: Ht 165.1 cm; Wt 53.2 kg
[2017-08-12 20:45] VITALS: TEMP 97.3
[2017-08-12 21:31] LABS: BASO # 0.1 (0.0-0.2); BASO % 0.6 % (0.0-2.0); EOS # 0.1 (0.0-0.7); EOS % 1.1 % (0-4.0); GRAN # 7.6 (1.4-6.5); GRAN % 68.1 % (42.2-75.2); HEMATOCRIT 35.6 % (37.0-47.0); HEMOGLOBIN 11.3 g/dl (12.5-16.0); LYMPH # 2.3 (1.2-3.4); LYMPH % 20.8 % (20.0-51.0); MEAN CELL VOLUME 89 fl (80.0-100.0); MEAN CORPUSCULAR HEMOGLOBIN 28 pg (27.0-31.0); MEAN CORPUSCULAR HGB CONC 32 g/dl (33.0-37.0); MEAN PLATELET VOLUME 11.1 fl (7.4-10.4); PLATELET COUNT 167 K/mm3 (130-400); RED BLOOD COUNT 4.02 M/mm3 (4.10-5.30); WHITE BLOOD COUNT 11.1 K/mm3 (4.8-10.8)
[2017-08-12 21:42] LABS: ADJUSTED CALCIUM 9.1 mg/dL (8.4-10.2); ALBUMIN 3.2 gm/dL (3.5-5.0); BILIRUBIN,TOTAL 0.6 mg/dL (0.0-1.0); CALCIUM 8.5 mg/dL (8.4-10.2); CREATININE, serum 0.75 mg/dL (0.52-1.25); POTASSIUM 3.7 mmol/L (3.4-5.0); TOTAL PROTEIN 6.8 gm/dL (6.4-8.2)
[2017-08-12 21:58] LABS: PROLACTIN 17.5 ng/mL (3.0-18.6)
[2017-08-12 22:55] VITALS: BP 136/91
[2017-08-12] MEDS ORDERED: PHENERGAN25 MG RC (23:15)
[2017-08-13 00:17] VITALS: PULSE 68
== END 2017-08-13 00:22 | disposition home or self-care (01) ==
LOC: COL.ER 20:43
PROVIDERS: Emergency Medicine
DX: G43.A0 Cyclical vomiting, in migraine, not intractable (principal); R19.7 Diarrhea, unspecified; G89.29 Other chronic pain; I10 Essential (primary) hypertension; G43.909 Migraine, unspecified, not intractable, without status migrainosus; E78.5 Hyperlipidemia, unspecified; F43.10 Post-traumatic stress disorder, unspecified; K21.9 Gastro-esophageal reflux disease without esophagitis; Z87.891 Personal history of nicotine dependence; Z87.11 Personal history of peptic ulcer disease; Z90.710 Acquired absence of both cervix and uterus; Z98.890 Other specified postprocedural states
CPT/HCPCS: J2060; J2550; J3010; J3030; J7120

== ENCOUNTER 2017-10-22 12:21 | Inpatient (IN) | payer MEDICARE, MEDICAID ==
[~2017-10-22] VITALS: Ht 165.1 cm; Wt 49.2 kg
[~2017-10-22 12:21] MED LIST changes: +PHENERGAN25 MG RC
[2017-10-25 16:02] VITALS: BP 107/90; PULSE 102; TEMP 99.2
[2017-10-25] MEDS ORDERED: ALBUTEROL0.83 MG/ML IH (16:11)
[2017-10-25] MEDS ORDERED: ELIQUIS 5MG PO (16:14)
[2017-10-25] MEDS ORDERED: BROVANA15 MCG/2 M IH (16:15)
[2017-10-25] MEDS ORDERED: FERROUSAL325 MG PO (16:16)
[2017-10-25] MEDS ORDERED: FOLIC ACID 11 MG/TA1 PO (16:32)
[2017-10-25] MEDS ORDERED: MUCINEX 60600 MG/TA1 PO (16:34)
[2017-10-25] MEDS ORDERED: BACTROBAN15 GM TOP (16:35)
[2017-10-25] MEDS ORDERED: NATURE'S BLEND100 M2 PO (16:38)
[2017-10-25] MEDS ORDERED: RT SPIRIVA18 MCG IH (16:39)
[2017-10-25] MEDS ORDERED: ULTRAM 50MG TAB50 MG PO (16:40)
[2017-10-25] MEDS ORDERED: EFFE25TA PO (16:44)
[2017-10-25] MEDS ORDERED: CENTRUM1 TA1 PO (16:49)
[2017-10-25] MEDS ORDERED: ZOFRAN 4MG T4 MG/TAB PO (16:50)
[2017-10-25] MEDS ORDERED: PROTONIX20 MG PO (16:51)
[2017-10-26 06:31] VITALS: BP 121/54; PULSE 73; TEMP 99.2
[2017-10-26 12:30] VITALS: PULSE 100
[2017-10-26 18:51] VITALS: BP 112/71; PULSE 93; TEMP 98.4
[2017-10-27 06:00] VITALS: BP 108/65; PULSE 99; TEMP 98.2
[2017-10-27 14:28] VITALS: BP 115/65; PULSE 82; TEMP 97.9
[2017-10-28 05:17] VITALS: BP 107/58; PULSE 96; TEMP 97.9
[2017-10-28 14:49] VITALS: BP 114/69; PULSE 99; TEMP 98.4
[2017-10-29 06:32] VITALS: BP 111/68; PULSE 102; TEMP 98.6
[2017-10-29 14:52] VITALS: BP 120/74; PULSE 91
[2017-10-30 00:49] VITALS: TEMP 98.6
[2017-10-30 06:22] VITALS: BP 129/75; PULSE 93; TEMP 97.5
[2017-10-30 14:47] VITALS: BP 102/64; PULSE 94; TEMP 98.2
[2017-10-31 06:20] VITALS: BP 119/71; PULSE 78; TEMP 98
[2017-10-31 15:31] VITALS: BP 110/73; PULSE 83; TEMP 98.2
[2017-11-01 06:30] VITALS: BP 105/51; PULSE 79
[2017-11-01 18:14] VITALS: BP 110/63; PULSE 94; TEMP 98.5
[2017-11-02 05:28] VITALS: BP 99/47; PULSE 91; TEMP 98.3
[2017-11-02 15:08] VITALS: BP 113/56; PULSE 99; TEMP 98
[2017-11-03 06:30] VITALS: BP 131/67; PULSE 92; TEMP 98.4
[2017-11-03 10:30] VITALS: BP 117/72; PULSE 82; TEMP 97.9
[2017-11-03 15:34] VITALS: BP 118/65; PULSE 99; TEMP 98.5
[2017-11-04 05:44] VITALS: BP 106/63; PULSE 87; TEMP 98.3
[2017-11-04 06:40] LABS: BASO # 0.1 (0.0-0.2); BASO % 1.4 % (0.0-2.0); EOS # 0.1 (0.0-0.7); EOS % 1.9 % (0-4.0); GRAN # 4.2 (1.4-6.5); GRAN % 65.7 % (42.2-75.2); LYMPH # 1.2 (1.2-3.4); MEAN CELL VOLUME 98 fl (80.0-100.0); MEAN CORPUSCULAR HGB CONC 30 g/dl (33.0-37.0); MEAN PLATELET VOLUME 9.9 fl (7.4-10.4); MONO # 0.7 (0.1-0.6); MONO % 11.5 % (1.7-9.3); PLATELET COUNT 234 K/mm3 (130-400); RED BLOOD COUNT 3.27 M/mm3 (4.10-5.30); REDCELL DISTRIBUTION WIDTH-CV 17.6 % (11.5-14.5)
[2017-11-04 06:50] LABS: CALCIUM 8.9 mg/dL (8.4-10.2); CREATININE, serum 0.6 mg/dL (0.52-1.25); MAGNESIUM 1.9 mg/dL (1.6-2.3); POTASSIUM 3.8 mmol/L (3.4-5.0)
[2017-11-04 07:00] LABS: HEMATOCRIT 32.1 % (37.0-47.0); HEMOGLOBIN 9.7 g/dl (12.5-16.0); MEAN CORPUSCULAR HEMOGLOBIN 30 pg (27.0-31.0)
[2017-11-04 15:22] VITALS: BP 123/75; PULSE 97; TEMP 98.3
[2017-11-05 06:33] VITALS: BP 93/51; PULSE 96; TEMP 98.6; TEMP 99.5
[2017-11-05 16:44] VITALS: BP 113/62; PULSE 92; TEMP 98.4
[2017-11-06 06:38] VITALS: BP 111/59; PULSE 91; TEMP 98.3
[2017-11-06 17:27] VITALS: BP 118/69; PULSE 92; TEMP 98.5
[2017-11-07 06:00] VITALS: BP 131/72; PULSE 87; TEMP 98.1
[2017-11-07 16:23] VITALS: BP 120/70; PULSE 98; TEMP 98.6
[2017-11-08 05:00] VITALS: BP 111/64; PULSE 92; TEMP 98.9
[2017-11-08 14:47] VITALS: BP 108/65; PULSE 97; TEMP 98.6
[2017-11-09 06:06] VITALS: BP 118/73; PULSE 103; TEMP 98.2
[2017-11-09 17:53] VITALS: BP 118/68; PULSE 89; TEMP 98.4
[2017-11-10 06:00] VITALS: BP 130/68; PULSE 88; TEMP 97.3
[2017-11-10 15:05] VITALS: BP 119/82; PULSE 96; TEMP 97.6
[2017-11-11 06:00] VITALS: BP 93/51; PULSE 92; TEMP 98.6
[2017-11-11 15:13] VITALS: BP 125/66; PULSE 89; TEMP 98.2
[2017-11-12 05:45] VITALS: BP 102/63; PULSE 95; TEMP 98.4
[2017-11-12 15:47] VITALS: BP 131/67; PULSE 95; TEMP 98.3
[2017-11-13 05:43] VITALS: BP 127/47; PULSE 89; TEMP 98.5
[2017-11-13] MEDS ORDERED: TYLENOL 325MG325 MG PO (09:00)
[2017-11-13] MEDS ORDERED: NORCO 325 MG-51 TAB PO (09:01)
[2017-11-13] MEDS ORDERED: INCRUSE EL62.5 MCG/A IH (09:11)
== END 2017-11-13 13:50 | disposition home health service (06) | DRG 91 ==
PROVIDERS: Internal Medicine
DX: G72.81 Critical illness myopathy (principal); J15.212 Pneumonia due to Methicillin resistant Staphylococcus aureus; J10.00 Influenza due to other identified influenza virus with unspecified type of pneumonia; A04.72 Enterocolitis due to Clostridium difficile, not specified as recurrent; I82.622 Acute embolism and thrombosis of deep veins of left upper extremity; I50.32 Chronic diastolic (congestive) heart failure; E44.0 Moderate protein-calorie malnutrition; Z68.1 Body mass index [BMI] 19.9 or less, adult; D50.9 Iron deficiency anemia, unspecified; F43.10 Post-traumatic stress disorder, unspecified; Z87.891 Personal history of nicotine dependence; M21.371 Foot drop, right foot; G89.29 Other chronic pain; J44.9 Chronic obstructive pulmonary disease, unspecified
CPT/HCPCS: 99223-AI; 99232-AI; 99233-AI; 99239; A9284; J1815

== ENCOUNTER → 2017-12-01 | Outpatient (CLI) | payer MEDICARE, MEDICAID ==
[~2017-12-01] MED LIST changes: +ALBUTEROL0.83 MG/ML IH; +BACTROBAN15 GM TOP; +BROVANA15 MCG/2 M IH; +CENTRUM1 TA1 PO; +EFFE25TA PO; +ELIQUIS 5MG PO; +FERROUSAL325 MG PO; +FOLIC ACID 11 MG/TA1 PO; +INCRUSE EL62.5 MCG/A IH; +MUCINEX 60600 MG/TA1 PO; +NATURE'S BLEND100 M2 PO; +PROTONIX20 MG PO; +RT SPIRIVA18 MCG IH; +TYLENOL 325MG325 MG PO; +ULTRAM 50MG TAB50 MG PO
[2017-12-01 17:46] LABS: THYROID STIMULATING HORMONE 0.023 uIU/mL (0.465-4.680)
== END ==
LOC: COL.RAD 15:41
PROVIDERS: Family Medicine
DX: R91.8 Other nonspecific abnormal finding of lung field (principal); M48.50XA Collapsed vertebra, not elsewhere classified, site unspecified, initial encounter for fracture; M81.8 Other osteoporosis without current pathological fracture; E03.9 Hypothyroidism, unspecified; Z96.89 Presence of other specified functional implants; Z86.14 Personal history of Methicillin resistant Staphylococcus aureus infection; Z87.81 Personal history of (healed) traumatic fracture; Z87.01 Personal history of pneumonia (recurrent)

== ENCOUNTER 2018-01-05 16:29 | Emergency (ER) | payer MEDICARE, MEDICAID ==
[2018-01-05 17:19] LABS: ARTERIAL BLD GAS O2 SATURATION 96.3 % (92-100); ARTERIAL BLD GAS TCO2 CT 22.1; ARTERIAL BLOOD GAS HCO3 20.9 meq/L (22-26); ARTERIAL BLOOD GAS PCO2 37.6 mmHg (35-45); ARTERIAL BLOOD GAS PO2 90.4 mmHg (80-100); ARTERIAL BLOOD GAS pH 7.36 (7.35-7.45)
[2018-01-05 17:26] LABS: BASO # 0.1 (0.0-0.2); BASO % 0.6 % (0.0-2.0); EOS % 0.1 % (0-4.0); GRAN # 12.1 (1.4-6.5); GRAN % 79.7 % (42.2-75.2); HEMOGLOBIN 11.8 g/dl (12.5-16.0); LYMPH % 13.2 % (20.0-51.0); MEAN CELL VOLUME 88 fl (80.0-100.0); MEAN CORPUSCULAR HEMOGLOBIN 29 pg (27.0-31.0); MEAN CORPUSCULAR HGB CONC 32 g/dl (33.0-37.0); MEAN PLATELET VOLUME 11.7 fl (7.4-10.4); MONO # 0.9 (0.1-0.6); MONO % 6.1 % (1.7-9.3); PLATELET COUNT 195 K/mm3 (130-400); RED BLOOD COUNT 4.13 M/mm3 (4.10-5.30); REDCELL DISTRIBUTION WIDTH-CV 15.4 % (11.5-14.5)
[2018-01-05 17:27] LABS: HEMATOCRIT 36.4 % (37.0-47.0)
[2018-01-05 17:31] LABS: ALBUMIN 3.1 gm/dL (3.5-5.0); BILIRUBIN,TOTAL 0.6 mg/dL (0.0-1.0); CALCIUM 8.6 mg/dL (8.4-10.2); CREATININE, serum 0.66 mg/dL (0.52-1.25); POTASSIUM 4.5 mmol/L (3.4-5.0); TOTAL PROTEIN 7.4 gm/dL (6.4-8.2)
[2018-01-05] MEDS ORDERED: NORCO 325 MG-51 TAB PO (18:02)
[2018-01-05] MEDS ORDERED: DOXYCYCLINE 10100 MG PO (18:02)
[2018-01-05] MEDS ORDERED: PREDNISONE20 MG PO (18:02)
[2018-01-05 19:11] VITALS: BP 153/89; PULSE 116
== END 2018-01-05 19:40 | disposition home or self-care (01) ==
LOC: COL.ER 16:29
PROVIDERS: Emergency Medicine
DX: J44.1 Chronic obstructive pulmonary disease with (acute) exacerbation (principal); G89.29 Other chronic pain; M54.5 Low back pain; I48.91 Unspecified atrial fibrillation; Z90.710 Acquired absence of both cervix and uterus; Z90.49 Acquired absence of other specified parts of digestive tract; Z98.890 Other specified postprocedural states
CPT/HCPCS: J2060; J2930; J7030